=== PATIENT | male | born 1990 | race American Indian/Alaskan Native ===

== ENCOUNTER 2022-05-11 01:43 | Emergency (ER) | payer SELFPAY ==
[2022-05-11 02:51] LABS: Bilirubin,Urine Negative (Negative); Blood,Urine Trace (Negative); Color,Urine Yellow (Yellow); PH,Urine 6.5 (5.0-7.0); Protein,Urine <15 mg/dL mg/dL (Negative)
--- NOTE | 2022-05-11 11:57 | Cat Scan Report ---
CT ABDOMEN AND PELVIS WITHOUT CONTRAST INDICATION / CLINICAL INFORMATION: hematuria, flank pain. TECHNIQUE: Axial CT images were obtained through the abdomen and pelvis without IV contrast. Sagittal and taylor l reformatted images. All CT scans at this location are performed using CT dose reduction for ALARA b y means of automated exposure control. COMPARISON: None available. FINDINGS: LOWER CHEST: No significant abnormality. LIVER: No significant abnormality. GALLBLADDER: No significant abnormality. BILE DUCTS: No significant abnormality. PANCREAS: No significant abnormality. SPLEEN: No significant abnormality. ADRENALS: No significant abnormality. KIDNEYS AND URETERS: The kidneys are normal size, contour and position. No cystic disease or obvious mass. I question if there are a few punctate calyceal stones in both kidneys. No large stones. No ure teral stone or hydronephrosis. STOMACH and SMALL BOWEL: No significant abnormality. COLON: No significant abnormality. APPENDIX: Not clearly identified. No inflammatory changes in the right lower quadrant. PERITONEUM: No free fluid. No free air. No fluid collection. LYMPH NODES: No significant adenopathy. AORTA and ARTERIES: No significant abnormality. IVC and VEINS: No significant abnormality. URINARY BLADDER: The bladder is empty and poorly evaluated, no gross abnormality. REPRODUCTIVE ORGANS: No significant abnormality. ADDITIONAL FINDINGS: None. SKELETAL SYSTEM: No significant abnormality. IMPRESSION: A few punctate nonobstructing renal stones are suspected bilaterally. No ureteral stones or hydroneph rosis. Signer Name: Vadim Wells Jr, MD Signed: 05/11/2022 11:52 AM Workstation Name: [id number]
--- NOTE | 2022-05-11 12:14 | Emergency Department Report ---
ED Abdominal Pain HPI - General Chief Complaint: Urogenital-Male Stated Complaint: HEMATURIA Time Seen by Provider: 05/11/22 10:13 Source: patient Mode of arrival: Ambulatory Limitations: No Limitations - History of Present Illness Initial Comments: 31 yo black male with no pmh presents to ed for evaluation of hematuria. He states that over the past several days, he has had intermittent dysuria, hematuria, and lower back pain. He denies abdominal pain, fever, and penile discharge. MD Complaint: flank pain -: Gradual, days(s) (6-7) Location: L flank Radiation: back Migration to: no migration Severity: mild Severity scale (0 -10): 3 Quality: aching Consistency: intermittent Associated Symptoms: dysuria, hematuria. denies: nausea, vomiting, diarrhea, fever, chills, hematemesis, hematochezia, melena, anorexia, syncope - Related Data Previous Rx's Medication Instructions Recorded Last Taken Type Ciprofloxacin/Ciprofloxa HCl 500 mg PO BID 5 Days #10 tab 05/11/22 Unknown Rx [Ciprofloxacin ER 500 mg Tablet] Ketorolac [Toradol] 10 mg PO Q6H PRN #12 tab 05/11/22 Unknown Rx Ondansetron [Zofran Odt] 4 mg PO Q8HR PRN #12 tab.rapdis 05/11/22 Unknown Rx Allergies Allergy/AdvReac Type Severity Reaction Status Date / Time No Known Allergies Allergy Unverified 05/11/22 02:32 ED Review of Systems ROS: Stated complaint: HEMATURIA Other details as noted in HPI Comment: All other systems reviewed and negative Constitutional: denies: chills, fever, weakness Respiratory: denies: shortness of breath Cardiovascular: denies: chest pain, palpitations Gastrointestinal: denies: abdominal pain, nausea, vomiting Genitourinary: dysuria, hematuria. denies: urgency, frequency, discharge, testicular pain Musculoskeletal: back pain Skin: denies: rash, lesions, change in color Neurological: denies: headache, weakness ED Past Medical Hx - Medications Home Medications: Home Medications Medication Instructions Recorded Confirmed Last Taken Type Ciprofloxacin/Ciprofloxa HCl 500 mg PO BID 5 Days #10 tab 05/11/22 Unknown Rx [Ciprofloxacin ER 500 mg Tablet] Ketorolac [Toradol] 10 mg PO Q6H PRN #12 tab 05/11/22 Unknown Rx Ondansetron [Zofran Odt] 4 mg PO Q8HR PRN #12 tab.rapdis 05/11/22 Unknown Rx ED Physical Exam - General Limitations: No Limitations General appearance: alert, in no apparent distress - Head Head exam: Present: atraumatic, normocephalic - Eye Eye exam: Present: normal appearance. Absent: conjunctival injection - Neck Neck exam: Present: normal inspection. Absent: lymphadenopathy - Respiratory Respiratory exam: Present: normal lung sounds bilaterally. Absent: respiratory distress, wheezes, rales, rhonchi, stridor, chest wall tenderness - Cardiovascular Cardiovascular Exam: Present: regular rate, normal heart sounds - GI/Abdominal GI/Abdominal exam: Present: soft, normal bowel sounds. Absent: distended, tenderness, guarding, rebound, rigid - Extremities Exam Extremities exam: Present: normal inspection, normal capillary refill. Absent: pedal edema, joint swelling, calf tenderness - Back Exam Back exam: Present: normal inspection. Absent: CVA tenderness (R), CVA tenderness (L), vertebral tenderness - Neurological Exam Neurological exam: Present: alert, oriented X3, normal gait - Psychiatric Psychiatric exam: Present: normal affect, normal mood - Skin Skin exam: Present: warm, dry, intact, normal color ED Course Vital Signs 05/11/22 12:45 Temperature 98.7 F Pulse Rate 81 Respiratory 16 Rate Blood Pressure 122/84 [Right] O2 Sat by Pulse 100 Oximetry ED Medical Decision Making - Radiology Data Radiology results: report reviewed, image reviewed CT abdomen and pelvis without contrast: FINDINGS: LOWER CHEST: No significant abnormality. LIVER: No significant abnormality. GALLBLADDER: No significant abnormality. BILE DUCTS: No significant abnormality. PANCREAS: No significant abnormality. SPLEEN: No significant abnormality. ADRENALS: No significant abnormality. KIDNEYS AND URETERS: The kidneys are normal size, contour and position. No cystic disease or obvious mass. I question if there are a few punctate calyceal stones in both kidneys. No large stones. No ureteral stone or hydronephrosis. STOMACH and SMALL BOWEL: No significant abnormality. COLON: No significant abnormality. APPENDIX: Not clearly identified. No inflammatory changes in the right lower quadrant. PERITONEUM: No free fluid. No free air. No fluid collection. LYMPH NODES: No significant adenopathy. AORTA and ARTERIES: No significant abnormality. IVC and VEINS: No significant abnormality. URINARY BLADDER: The bladder is empty and poorly evaluated, no gross abnormality. REPRODUCTIVE ORGANS: No significant abnormality. ADDITIONAL FINDINGS: None. SKELETAL SYSTEM: No significant abnormality. IMPRESSION: A few punctate nonobstructing renal stones are suspected bilaterally. No ureteral stones or hydronephrosis. - Medical Decision Making 31 yo black male with no pmh presents to ed for evaluation of hematuria. He states that over the past several days, he has had intermittent dysuria, hematuria, and lower back pain. He denies abdominal pain, fever, and penile discharge. Physical exam unremarkable. UA positive for uti and ct abdomen positive for kidney stones. Patient will be d/nitesh home with rx for cipro, zofran, and toradol to use as directed and advised to increase intake of non caffinated fluids and follow up with urology for further evaluation and management or return to ed needed. He verbalized understanding of and agreement with plan of care. Critical care attestation.: If time is entered above; I have spent that time in minutes in the direct care of this critically ill patient, excluding procedure time. ED Disposition Clinical Impression: Kidney stones Disposition: HOME / SELF CARE / HOMELESS Is pt being admited?: No Does the pt Need Aspirin: No Condition: Stable Instructions: Kidney Stones, [id number], Dietary Guidelines to Help Prevent Kidney Stones Additional Instructions: Take medications as prescribed. Follow-up with primary care provider or urology for further evaluation and management return to the emergency department as needed. Prescriptions: Ciprofloxacin/Ciprofloxa HCl [Ciprofloxacin ER 500 mg Tablet] 500 mg PO BID 5 Days #10 tab Ketorolac [Toradol] 10 mg PO Q6H PRN #12 tab PRN Reason: Pain Ondansetron [Zofran Odt] 4 mg PO Q8HR PRN #12 tab.rapdis PRN Reason: Nausea And Vomiting Referrals: MARCELA NAGEL MD [Primary Care Provider] - 3-5 Days TELLY BEAULIEU MD [Staff Physician] - 3-5 Days Forms: Work/School Release Form(ED) Time of Disposition: 12:15
[2022-05-11 13:01] VITALS: BP 122/84
== END 2022-05-11 13:01 | disposition home or self-care (01) ==
LOC: ED 01:43
DX: N20.0 Calculus of kidney (principal); Z79.899 Other long term (current) drug therapy
CPT/HCPCS: 74176; 81001; 87086; 99284